=== PATIENT | female | born 1970 | race Caucasian/White ===

== ENCOUNTER 2022-02-20 22:05 | Emergency (ER) | payer SELFPAY ==
[2022-02-20 22:07] VITALS: BP 146/97; PULSE 108; RESP 20; TEMP 36.3; O2SAT 100
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
[2022-02-20] MEDS: KETOROLAC 30 MG/ML VIAL (*BKC) IV PUSH (22:27)
[2022-02-20] MEDS: diphenhydrAMINE HCl INJ 50 MG/ML VIAL 25 MG IV PUSH (22:30)
[2022-02-20] MEDS: SODIUM CHLORIDE 0.9% IV 1,000 ML 999 ML IV CONT (22:31)
[2022-02-20 22:48] VITALS: BP 171/95; PULSE 88; RESP 16; O2SAT 98
[2022-02-21 00:56] VITALS: BP 150/98; PULSE 91; RESP 16; O2SAT 100
== END 2022-02-21 00:35 | disposition home or self-care (01) ==
PROVIDERS: Emergency Provider Emergency Medicine
DX: G43.011 Migraine without aura, intractable, with status migrainosus (principal)
CPT/HCPCS: 96361; 96374; 96375; 99284; J1200; J1885; J7030

== ENCOUNTER 2023-05-16 12:33 | Emergency (ER) | payer BC, SELFPAY ==
--- NOTE | ~2023-05-16 | CT_ITS ---
EXAMINATION: CT brain wo con DATE: 05/16/2023 15:03 INDICATION: Head injury TECHNIQUE: Computed tomography (CT) of the head was performed without intravenous contrast. Sagittal and coronal reconstructions were performed. The mA was adjusted according to patient size. Iterative reconstruction technique was employed. The dose-length product was 681.00 mGy-cm. COMPARISON: None FINDINGS: No fracture. No acute intracranial hemorrhage, acute infarction or abnormal extra axial fluid collect ion. Ventricles are normal and symmetric. No mass/mass effect. The orbits, paranasal sinuses and mast oid air cells are normal. IMPRESSION: 1. Normal head CT. No fracture or acute intracranial process. Reviewed, dictated and finalized at location L.
[2023-05-16 12:35] VITALS: BP 152/96; PULSE 68; RESP 16; TEMP 36.9; O2SAT 100
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
[2023-05-16] MEDS: SODIUM CHLORIDE 0.9% IV 1,000 ML 999 ML IV CONT (13:58)
[2023-05-16] MEDS: diphenhydrAMINE HCl INJ 50 MG/ML VIAL 25 MG IV PUSH (13:59)
[2023-05-16] MEDS: PROCHLORPERAZINE EDISYLATE 10 MG/2 ML VIAL IV PUSH (13:59)
[2023-05-16] MEDS: ONDANSETRON INJ 4 MG/2 ML VIAL IV PUSH (13:59)
[2023-05-16 15:34] VITALS: BP 142/87; PULSE 66; RESP 18; O2SAT 99
== END 2023-05-16 15:30 | disposition home or self-care (01) ==
PROVIDERS: Emergency Provider Emergency Medicine
DX: S09.90XA Unspecified injury of head, initial encounter (principal); W18.30XA Fall on same level, unspecified, initial encounter
CPT/HCPCS: 70450; 96361; 96374; 96375; 99284; J0780; J1200; J2405; J7030

== ENCOUNTER 2023-08-01 15:37 | Outpatient (RCR) | payer BC, SELFPAY ==
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
== END 2023-09-05 13:02 | disposition home or self-care (01) ==
LOC: ANHST 15:37
DX: S82.871 Displaced pilon fracture of right tibia (principal); R25.2 Cramp and spasm; R26.81 Unsteadiness on feet; Z44.121 Encounter for fitting and adjustment of partial artificial right leg; Z89.511 Acquired absence of right leg below knee
CPT/HCPCS: 96125

== ENCOUNTER 2023-12-19 18:32 | Inpatient (IN) | payer BC, SELFPAY ==
--- NOTE | ~2023-12-19 | XR_ITS ---
EXAMINATION: XR abdomen obstructive series DATE: 12/22/2023 08:04 INDICATION: Distended sigmoid colon. TECHNIQUE: Upright and supine views of the abdomen on 3 radiographs were obtained. COMPARISON: Abdomen radiographs 12/20/2023 FINDINGS: There is gaseous distention of the sigmoid colon. There is a small volume of stool in the c olon. The small bowel is normal in caliber. No free intraperitoneal gas. There is mild atelectasis at the lung bases. IMPRESSION: 1. Gaseous distention of the sigmoid colon, likely adynamic ileus. Reviewed, dictated and finalized at location A. DULE CLERK
--- NOTE | ~2023-12-19 | XR_ITS ---
Supine and upright views of the abdomen Clinical history: NG tube placement Findings: NG tube in satisfactory position. Bowel gas pattern is nonspecific. No evidence for obstruc tion or free air. No abnormal mass lesion or calcification is seen. Osseous structures are intact. Impression: NG tube in satisfactory position. Reviewed, dictated and finalized at [facility]. ICAL MEDICAL ASSISTANT Impression: NG tube in satisfactory position.
--- NOTE | ~2023-12-19 | MR_ITS ---
EXAMINATION: MR thoracic spine wo/w con DATE: 12/20/2023 17:34 INDICATION: Paraspinal mass. Back pain. TECHNIQUE: Magnetic resonance imaging (MRI) of the thoracic spine was performed without and with 15 m L MultiHance intravenous contrast. COMPARISON: Chest CT 12/20/2023 FINDINGS: Bone alignment is normal. Vertebral body heights and intervertebral disc heights are normal . The discs do not extend beyond the endplate margins. There is multilevel facet joint osteoarthritis , severe in lower thoracic spine. There is multilevel mild neural foraminal stenosis. There is a 3.1 x 1.6 x 1.4 cm paraspinal cyst with fluid/fluid level on the left at T4-T5. IMPRESSION: 1. 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 2. Mild thoracic spondylosis. Reviewed, dictated and finalized at location E. ICAL SUPPLIES STERILIZER
--- NOTE | ~2023-12-19 | XR_ITS ---
EXAMINATION: XR abdomen/kub 1V DATE: 12/20/2023 17:50 INDICATION: Bowel resection. TECHNIQUE: A supine view of the abdomen on 2 radiographs was obtained. COMPARISON: CT abdomen and pelvis 12/20/2023 FINDINGS: There is gaseous distention of the sigmoid colon There is a moderate volume of stool in the colon. The small bowel is normal in caliber. The nasogastric tube tip is in the stomach. IMPRESSION: 1. Gaseous distention of the sigmoid colon, likely adynamic ileus. Reviewed, dictated and finalized at location E. LATE CHECKER
--- NOTE | ~2023-12-19 | CT_ITS ---
Clinical Indication: Chest pain, abdominal pain CT Scan of the Chest, Abdomen, and Pelvis with Contrast: Technique: Contiguous sections were acquired throughout the chest, abdomen, and pelvis after intraven ous administration of 100 cc of Omnipaque 350. Dose reduction technique was used on this scan by cade roberson automated exposure control and iterative reconstruction technique. The dose-length product (DL P) was 1460.76 mGy-cm. Findings: There is no evidence of any significant mediastinal, hilar or axillary lymphadenopathy. No aortic ane urysm or dissection. No pulmonary embolus. There is a 3.2 x 1.6 cm left paravertebral soft tissue mas s just posterior to the aortic arch (axial image 70).. There is no evidence of pleural or pericardial effusion. The lungs are clear. No pulmonary nodules or infiltrates are noted. The liver, spleen, pancreas, gallbladder, adrenals and kidneys are within normal limits. No evidence of aortic aneurysm. No lymphadenopathy. No bowel obstruction or bowel wall thickening. There is no evidence to suggest acute appendicitis. Urinary bladder is unremarkable. No pelvic mass seen. No ascites. Impression: 3.2 x 1.6 cm left paravertebral soft tissue mass at the T4 level, as detailed above. Diagnostic consi derations include neoplasm, especially neurogenic tumors, lymphadenopathy, or possibly extra medullar y hematopoiesis. Consider PET/CT and/or tissue sampling to establish a histologic diagnosis. Comparis on with any outside prior exams, if such are available, would be useful to assess for chronicity of t his lesion. No other significant findings. Reviewed, dictated and finalized at location . L DEFENSE DIRECTOR Impression: 3.2 x 1.6 cm left paravertebral soft tissue mass at the T4 level, as detailed palak perez. Diagnostic considerations include neoplasm, especially neurogenic tumors, lymphadenopathy, or possibly extra medullary hematopoiesis. Consider PET/CT an d/or tissue sampling to establish a histologic diagnosis. Comparison with any o dcside prior exams, if such are available, would be useful to assess for chroni city of this lesion. No other significant findings.
--- NOTE | ~2023-12-19 | XR_ITS ---
EXAMINATION: XR chest 2V DATE: 12/19/2023 20:41 INDICATION: Chest pain. Shortness of breath. TECHNIQUE: Frontal and lateral views of the chest were obtained. COMPARISON: None. FINDINGS: There is no pneumonia, pleural effusion, or pneumothorax. The heart size is normal. IMPRESSION: 1. No acute cardiopulmonary disease. Reviewed, dictated and finalized at location E. UE TESTER
--- NOTE | 2023-12-19 18:48 | ECG_ITS ---
Measurements Intervals [place] Rate: 103 P: 43 NC: 144 QRS: -14 QRSD: 79 T: 39 QT: 343 QTc: 449 Interpretive Statements SINUS TACHYCARDIA LOW-VOLTAGE QRS OTHERWISE WITHIN NORMAL LIMITS ABNORMAL RHYTHM ECG NO PREVIOUS ECG AVAILABLE FOR COMPARISON Electronically Signed On 12-20-2023 7:10:09 IRON SETTER by Fabio Nazario M.D.
[2023-12-19 18:50] VITALS: BP 140/88; PULSE 108; RESP 16; TEMP 36.6; O2SAT 100
[2023-12-19 19:17] LABS: Basophils Absolute Auto 0.1 K/mm3 (0.0-0.1); Basophils Percent Auto 0.6 % (0.2-1.2); Eosinophils Absolute Auto 0.2 K/mm3 (0-0.3); Eosinophils Percent Auto 2.1 % (0-4.4); Hematocrit 37.3 % (37.0-47.0); Hemoglobin 12.1 g/dL (12.0-15.0); Immature Granulocyte Absolute 0.04 K/mm3 (0.00-0.031); Immature Granulocyte Percent A 0.4 % (0-0.5); Lymphocytes Percent Auto 25.5 % (18.3-44.2); Mean Corpuscular HGB Conc 32.4 g/dl (32-36); Mean Corpuscular Hemoglobin 29.7 pg (26-34); Mean Corpuscular Volume 91.6 fl (80-100); Mean Platelet Volume 9.7 fl (7.4-10.4); Monocytes Absolute Auto 0.8 K/mm3 (0.1-0.6); Monocytes Percent Auto 7.5 % (2.6-8.5); Neutrophils Absolute Auto 6.5 K/mm3 (1.3-6.7); Neutrophils Percent Auto 63.9 % (45.5-73.1); Platelet Count Result 298 k/mm3 (150-375); Red Blood Count 4.07 M/mm3 (4.2-5.4); Red Cell Distribution Width 12.7 % (11.5-14.5); White Blood Count 10.2 K/mm3 (4.5-10.0)
[2023-12-19 19:29] LABS: Alanine Aminotransferase 20 U/L (6-35); Albumin Level 3.8 g/dL (3.5-5.1); Alkaline Phosphatase 105 U/L (38-126); Anion Gap 6 mmol/L (8-16); Aspartate Amino Transferase 26 U/L (14-36); Bilirubin,Total 0.4 mg/dL (0.2-1.3); Blood Urea Nitrogen 20 mg/dL (7-17); Carbon Dioxide 25 mmol/L (22-30); Chloride 106 mmol/L (98-107); Estimated CRCL calculation 62 ml/min; Estimated Glomerular Filt Rate 58; Glucose 100 mg/dL (65-110); INR 0.9; Lipase 125 U/L (23-300); Potassium 4.1 mmol/L (3.4-5.0); Sodium 137 mmol/L (137-145)
[2023-12-19 19:30] LABS: Partial Thromboplastin Time 28.2 SECONDS (22.3-36.8)
[2023-12-19 19:38] LABS: Troponin I < 0.012 ng/mL (0.000-0.034)
[2023-12-19 23:35] VITALS: BP 163/101; PULSE 96; RESP 18; O2SAT 100
--- NOTE | 2023-12-19 23:41 | ECG_ITS ---
Measurements Intervals [place] Rate: 93 P: 43 IN: 142 QRS: -17 QRSD: 82 T: 35 QT: 342 QTc: 426 Interpretive Statements SINUS RHYTHM BORDERLINE LEFTWARD AXIS OTHERWISE WITHIN NORMAL LIMITS COMPARED TO ECG 12/19/2023 18:43:44 NO SIGNIFICANT DIFFERENCE Electronically Signed On 12-20-2023 15:28:37 COMMUNICATION SPEC by Fabio Nazario M.D.
[2023-12-20] VITALS (13 sets, daily range): BP systolic 127–180; BP diastolic 73–109; PULSE 77–102; RESP 15–17; TEMP 36.3–36.4; O2SAT 97–100
[2023-12-20 00:13] LABS: D Dimer 0.31 ug/mL (<0.48)
[2023-12-20 00:16] LABS: Troponin I < 0.012 ng/mL (0.000-0.034)
[2023-12-20] MEDS: ONDANSETRON INJ 4 MG/2 ML VIAL IV PUSH ×2 (00:49→15:05)
[2023-12-20] MEDS: MORPHINE SULFATE (*CRX) 4 MG/ML INJ IV PUSH (00:49)
[2023-12-20] MEDS: HYDROmorphone HCL INJ (*CRX) 1 MG/ML SYR IV PUSH ×6 (02:02→19:05)
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
[2023-12-20] MEDS: hydrALAZINE HCL 20 MG/ML VIAL 10 MG IV PUSH (04:37)
--- NOTE | 2023-12-20 05:35 | ADMGEN ---
This patient, Arvind Das, was admitted to Medical Room 250-01. Patient/family oriented to hospital policies and general routines including ID bracelet, bed and alarms, visiting hours, pain management, procedures, bathroom and other care routines, personal items, smoking policy, room service/diet, and visiting hours. Information on how to activate the Rapid Response Team has been discussed. Patient/Family are encouraged to report perceived risks to care and to ask questions if they do not understand what they are told or what they should do.
[2023-12-20] MEDS: SODIUM CHLORIDE 0.9% IV 1,000 ML 125 ML IV CONT ×2 (05:50→18:47)
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
[2023-12-20 09:19] LABS: Basophils Absolute Auto 0.1 K/mm3 (0.0-0.1); Basophils Percent Auto 0.4 % (0.2-1.2); Eosinophils Percent Auto 0.3 % (0-4.4); Hematocrit 37.9 % (37.0-47.0); Hemoglobin 12.1 g/dL (12.0-15.0); Immature Granulocyte Absolute 0.04 K/mm3 (0.00-0.031); Immature Granulocyte Percent A 0.3 % (0-0.5); Lymphocytes Absolute Auto 1.69 K/mm3 (0.9-3.2); Lymphocytes Percent Auto 13.9 % (18.3-44.2); Mean Corpuscular HGB Conc 31.9 g/dl (32-36); Mean Corpuscular Hemoglobin 29.6 pg (26-34); Mean Corpuscular Volume 92.7 fl (80-100); Mean Platelet Volume 9.6 fl (7.4-10.4); Monocytes Absolute Auto 0.9 K/mm3 (0.1-0.6); Monocytes Percent Auto 7.5 % (2.6-8.5); Neutrophils Absolute Auto 9.4 K/mm3 (1.3-6.7); Neutrophils Percent Auto 77.6 % (45.5-73.1); Platelet Count Result 259 k/mm3 (150-375); Red Blood Count 4.09 M/mm3 (4.2-5.4); White Blood Count 12.1 K/mm3 (4.5-10.0)
[2023-12-20 09:28] LABS: Alanine Aminotransferase 21 U/L (6-35); Albumin Level 3.9 g/dL (3.5-5.1); Alkaline Phosphatase 117 U/L (38-126); Anion Gap 6 mmol/L (8-16); Aspartate Amino Transferase 26 U/L (14-36); Bilirubin,Total 0.6 mg/dL (0.2-1.3); Blood Urea Nitrogen 16 mg/dL (7-17); Carbon Dioxide 25 mmol/L (22-30); Chloride 106 mmol/L (98-107); Estimated CRCL calculation 77 ml/min; Estimated Glomerular Filt Rate > 60; Glucose 111 mg/dL (65-110); Magnesium 2.1 mg/dL (1.6-2.3); Potassium 3.8 mmol/L (3.4-5.0); Sodium 137 mmol/L (137-145)
[2023-12-20] MEDS: ACETAMINOPHEN 325 MG TABLET 650 MG PO ×2 (13:00→20:22)
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
--- NOTE | 2023-12-20 19:54 | PC.NURSE ---
Dr. Shah returned call r/t consult. She will look at patient's films this evening or tomorrow and evaluate if patient needs to be seen at this time. Patient may need to follow up outpatient r/t MRI finding. She will either call the hospitalist or the nurse tomorrow to communicate for further instructions. States she may not be rounding on Saturday12/21/23 but may be here saturday and see patient if she is still here.
--- NOTE | 2023-12-20 20:19 | WPDNEUROSGPN ---
Subjective Date/time seen: 12/20/23 20:19 Interval history: I was asked to review patient's MRI of the thoracic spine, which shows a left paraspinal cystic lesion adjacent to the T5 vebral body in the extraspinal space between the thoracic vertebral column and the aortic arch. This lesion was identified on Chest Abdomen Pelvis CT perofrmed for other reasons and that study was suggestive of a soft tissue lesion. On the MRI there appears to be a fluid level within the lesion. There is no suggestion of metastatic disease on the CAP CT and no history of maligancy per the records. 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 Particularly given that this is an incidental finding and given the location, I would favor a plan for observing this with serial clinical and radiographic assessment. There are no clinical or radiographic characteristics that would suggest a need for further intervention during this hospitalization. Patient could and should follow up in the neurosurgical clinic to discuss further and to establish care for serial clinical and radiographic assessment. Objective Data Vital Signs Vital Signs: Vital Signs - 24 hr 12/19/23 23:35 12/20/23 03:20 12/20/23 03:48 Temperature Pulse Rate 96 93 Respiratory Rate 18 15 Blood Pressure 163/101 H 176/109 H Pulse Oximetry 100 100 97 Oxygen Delivery Nasal Cannula Oxygen Flow Rate 2 12/20/23 04:43 12/20/23 05:07 12/20/23 05:35 Temperature 36.4 C L Pulse Rate 93 98 94 Respiratory Rate 15 15 Blood Pressure 158/74 H 127/73 Pulse Oximetry 100 100 Oxygen Delivery Oxygen Flow Rate 12/20/23 05:43 12/20/23 15:13 12/20/23 08:00 Temperature 36.4 C 36.3 C L Pulse Rate 94 91 102 H Respiratory Rate 16 17 Blood Pressure 148/93 H 150/87 H Pulse Oximetry 99 100 Oxygen Delivery Oxygen Flow Rate 12/20/23 12:04 12/20/23 17:54 Temperature Pulse Rate 91 77 Respiratory Rate Blood Pressure Pulse Oximetry Oxygen Delivery Oxygen Flow Rate Intake/Output Intake/Output: Intake & Output 12/17/23 12/18/23 12/19/23 12/20/23 23:59 23:59 23:59 23:59 Intake Total 1000 Balance 1000 Meds/Results Medications: Active Medications Generic Name Dose Route Start Last Admin Trade Name Freq PRN Reason Stop Dose Admin Acetaminophen 650 mg 12/20/23 12:35 12/20/23 13:00 Acetaminophen 325 Mg Tablet PO 650 mg Q6H PRN Administration Headache Fluoxetine HCl 60 mg 12/20/23 09:00 12/20/23 09:12 Fluoxetine Hcl 20 Mg Capsule PO Not Given DAILY ABE Hydromorphone HCl 1 mg 12/20/23 03:46 12/20/23 19:05 Hydromorphone Hcl Inj (*Crx) 1 Mg/Ml Syr IV PUSH 1 mg Q4H PRN Administration Pain Rated 7-10 Sodium Chloride 1,000 mls @ 125 mls/hr 12/20/23 03:50 12/20/23 18:47 Normal Saline Iv IV CONT 125 mls/hr .Q8H ABE Administration Ondansetron HCl 4 mg 12/20/23 03:46 12/20/23 15:05 Ondansetron Inj 4 Mg/2 Ml Vial IV PUSH 4 mg Q4H PRN Administration Nausea Radiology Results: ITS Impressions Chest X-Ray 12/19/23 20:44 IMPRESSION: 1. No acute cardiopulmonary disease. Chest/Abdomen/Pelvis CTA 12/20/23 05:47 Impression: 3.2 x 1.6 cm left paravertebral soft tissue mass at the T4 level, as detailed above. Diagnostic considerations include neoplasm, especially neurogenic tumors, lymphadenopathy, or possibly extra medullary hematopoiesis. Consider PET/CT and/or tissue sampling to establish a histologic diagnosis. Comparison with any outside prior exams, if such are available, would be useful to assess for chronicity of this lesion. No other significant findings. Thoracic Spine MRI 12/20/23 17:37 IMPRESSION: 1. 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 2. Mild thoracic spondylosis. Abdomen X-Ray 12/20/23 17:55 IMPRESSION: 1. Gaseous distention of the sigmoid colon, likely
[2023-12-21] VITALS (9 sets, daily range): BP systolic 167–169; BP diastolic 92–95; PULSE 79–104; RESP 14–20; TEMP 36.4–36.8; O2SAT 95–100
--- NOTE | 2023-12-21 | ECHO_ITS ---
Patient Info Name: Arvind Das Age: 53 years : 1970 Gender: Female Ht: 66 in Wt: 178 lbs BSA: 1.96 m2 HR: 71 bpm BP: 167 / 92 mmHg Heart Rhythm: Sinus Rhythm Technical Quality: Fair Exam Date: 12/21/2023 1:31 PM Exam Location: Echo Lab Exam Room: 250 Patient Status: Inpatient Admit Date: 12/20/2023 Staff Ordering Physician: Lucien Ayoub MD [employer] Excavation Operator: Danita Rahman RDCS Attending Provider: Rey Enriquez MD Exam Type: CA echo doppler color flow Study Info Indications - chest pain Complete two-dimensional, color flow and Doppler transthoracic echocardiogram is performed. Summary 1. Complete two-dimensional, color flow and Doppler transthoracic echocardiogram is performed. 2. Left ventricular chamber dimension is normal. 3. Left ventricular systolic function is normal, estimated at 65-70%. 4. There is mildly increased left ventricular wall thickness. 5. The left ventricular diastolic function is grade I diastolic dysfunction. 6. There is mild mitral valve regurgitation. 7. There is mild tricuspid valve regurgitation. 8. There is mild pulmonic regurgitation. Left Ventricle Left ventricular chamber dimension is normal. Left ventricular systolic function is normal, estimated at 65-70%. There is mildly increased left ventricular wall thickness. The left ventricular diastolic function is grade I diastolic dysfunction. Right Ventricle Right ventricular chamber dimension is normal. Right ventricular systolic function is normal. Left Atria Left atrial chamber dimension is normal. Right Atria Right atrial chamber dimension is normal. Atrial Septum Intact interatrial septum visualized by color flow imaging. Aortic Valve The aortic valve is probable trileaflet. There is mild aortic valve sclerosis. There is no aortic valve stenosis. There is trace aortic valve regurgitation. Pulmonic Valve The pulmonic valve is normal. There is no pulmonic valve stenosis. There is mild pulmonic regurgitation. Mitral Valve The mitral valve has normal leaflets. There is no mitral valve stenosis. There is mild mitral valve regurgitation. Tricuspid Valve The tricuspid valve leaflets are normal. There is no significant tricuspid valve stenosis. There is mild tricuspid valve regurgitation. No pulmonary hypertension, estimated pulmonary arterial systolic pressure is 30 mmHg. Pericardium/Pleural The pericardium appears normal. There is no pericardial effusion. Inferior Vena Cava Normal inferior vena cava with >50% collapse upon inspiration consistent with normal right atrial pressure, 10 mmHg. Aorta The aortic root size at the sinus of Valsalva is normal. Left Ventricular Outflow Tract Name Value Normal LVOT 2D LVOT Diameter 2.0 cm LVOT Doppler LVOT Peak Gradient 5 mmHg LVOT Mean Gradient 3 mmHg LVOT VTI 25 cm LVOT VTI/AV VTI Ratio 0.9 LVOT Stroke Volume 81 ml LVOT CO 14.4 l/min LVOT CI 7.3 l/min/m2 Pulmonic Valve
[2023-12-21] MEDS: HYDROmorphone HCL INJ (*CRX) 1 MG/ML SYR IV PUSH ×2 (02:17→05:52)
[2023-12-21] MEDS: SODIUM CHLORIDE 0.9% IV 1,000 ML 125 ML IV CONT (02:48)
[2023-12-21] MEDS: FLUoxetine HCL 20 MG CAPSULE 60 MG PO (09:26)
[2023-12-21] MEDS: ACETAMINOPHEN 325 MG TABLET 650 MG PO (09:50)
[2023-12-21] MEDS: HYDROcodone/acetaminophen (*CRX) 10-325 MG TABLET 1 TAB PO ×3 (11:20→20:46)
--- NOTE | 2023-12-21 11:22 | PM.PNGS ---
Progress Note: A&P Assessment and Plan (1) Abnormal CT of the abdomen: Code(s): R93.5 - Abnormal findings on diagnostic imaging of other abdominal regions, including retroperitoneum Status: Acute Assessment and Plan: Advance diet as tolerated. I do not see any abdominal pathology that would be causing the thoracic and chest pain. Continue any further workup per hospitalist. Will get 1 more abdominal x-ray tomorrow to ensure that she is advancing her diet without any signs of obstruction. No further surgical recommendations at this time. (2) Paravertebral mass: Code(s): R22.2 - Localized swelling, mass and lump, trunk Status: Acute (3) Chest pain: Code(s): R07.9 - Chest pain, unspecified Status: Acute Subjective Subjective Date/Time Seen: 12/21/23 11:23 Interval history: Patient tolerated clear liquids. Bowels moving and passing flatus. Complaining of severe left thoracic and left chest pain. Exam GI: Inspection: non-distended GI Palp: Yes Soft to palpation, No Tenderness to palpation present (GI) and No Guarding due to palpation present (GI) Auscultation: normal bowel sounds Objective Data Vital Signs Vital Signs: Vital Signs - 24 hr 12/20/23 15:13 12/20/23 12:04 12/20/23 17:54 Temperature 36.3 C L Pulse Rate 91 91 77 Respiratory Rate 17 Blood Pressure 150/87 H Pulse Oximetry 100 Oxygen Delivery 12/20/23 20:35 12/20/23 21:15 12/20/23 20:03 Temperature 36.4 C Pulse Rate 78 94 Respiratory Rate 16 Blood Pressure 180/94 H Pulse Oximetry 97 Oxygen Delivery Room Air 12/21/23 00:01 12/21/23 04:00 12/21/23 05:38 Temperature 36.4 C Pulse Rate 87 104 H 94 Respiratory Rate 20 Blood Pressure 167/92 H Pulse Oximetry 95 Oxygen Delivery 12/20/23 21:42 Temperature Pulse Rate Respiratory Rate Blood Pressure Pulse Oximetry 97 Oxygen Delivery Room Air Intake/Output Intake/Output: Intake & Output 12/18/23 12/19/23 12/20/23 12/21/23 23:59 23:59 23:59 23:59 Intake Total 1000 1250 Balance 1000 1250 Meds/Results Medications: Active Medications Generic Name Dose Route Start Last Admin Trade Name Freq PRN Reason Stop Dose Admin Acetaminophen 650 mg 12/20/23 12:35 12/21/23 09:50 Acetaminophen 325 Mg Tablet PO 650 mg Q6H PRN Administration Headache Hydrocodone Bitart/Acetaminophen 1 tab 12/21/23 09:35 12/21/23 11:20 Hydrocodone/Acetaminophen (*Crx) 10-325 Mg Tablet PO 1 tab Q4H PRN Administration Pain Rated 6 or Greater Cyclobenzaprine HCl 5 mg 12/21/23 11:07 Cyclobenzaprine Hcl 5 Mg Tablet PO Q8H PRN Muscle Spasm Fluoxetine HCl 60 mg 12/20/23 09:00 12/21/23 09:26 Fluoxetine Hcl 20 Mg Capsule PO 60 mg DAILY ABE Administration Gabapentin 100 mg 12/21/23 13:00 Gabapentin 100 Mg Capsule PO TID ABE Hydromorphone HCl 1 mg 12/20/23 03:46 12/21/23 05:52 Hydromorphone Hcl Inj (*Crx) 1 Mg/Ml Syr IV PUSH 1 mg Q4H PRN Administration Moderate Pain (4-6) Sodium Chloride 1,000 mls @ 125 mls/hr 12/20/23 03:50 12/21/23 02:48 Normal Saline Iv IV CONT 125 mls/hr .Q8H ABE Administration Lidocaine 1 patch 12/22/23 09:00 Lidocaine 5% Patch TRANSDERM DAILY ABE Ondansetron HCl 4 mg 12/20/23 03:46 12/20/23 15:05 Ondansetron Inj 4 Mg/2 Ml Vial IV PUSH 4 mg Q4H PRN Administration Nausea Radiology Results: ITS Impressions Chest X-Ray 12/19/23 20:44 IMPRESSION: 1. No acute cardiopulmonary disease. Chest/Abdomen/Pelvis CTA 12/20/23 05:47 Impression: 3.2 x 1.6 cm left paravertebral soft tissue mass at the T4 level, as detailed above. Diagnostic considerations include neoplasm, especially neurogenic tumors, lymphadenopathy, or possibly extra medullary hematopoiesis. Consider PET/CT and/or tissue sampling to establish a histologic diagnosis. Comparison with any outside prior exams,
--- NOTE | 2023-12-21 12:59 | PM.IMPN ---
Progress Note: A&P Assessment and Plan (1) Chest pain: Code(s): R07.9 - Chest pain, unspecified Status: Acute (2) Paravertebral mass: Code(s): R22.2 - Localized swelling, mass and lump, trunk Status: Acute Plan This is a 53-year-old female presented with chief complaint of left posterior scapular pain radiating around the left breast and epigastric area for 4 hours. Worse with movement and deep inspiration P no prior history of cardiac disease. However evaluation in the ED showed EKG with sinus tachycardia mild no acute ST-T changes. Mild leukocytosis at 10.2 CMP within normal limits lipase is 125 which is normal, serial troponin normal, D-dimer was negative chest x-ray was negative. CTA chest was done which showed no evidence of PE. Noted 3.2 x 1.6 cm left paravertebral soft tissue mass just posterior to the aortic arch diagnostic considerations include neoplasm especially neurogenic tumor lymphadenopathy or possibly extramedullary hematopoiesis. Consider PET-CT and/or tissue sampling to status histologic diagnosis. No prior studies were found for comparison. Nighttime radiologist reported dilated loops of jejunum measuring up to 3 point cm with gradual transition to normal caliber bowel in the proximal jejunum. While findings may relate to peristalsis developing bowel obstruction is not excluded. Mild bladder wall thickening findings can be related to underdistention. Cystitis is less likely. No other acute findings reported. NG tube was placed in the ED. general surgery has been consulted. NG tube has been removed. Diet has been advanced Newly detected 3.2 x 1.6 cm left paravertebral soft tissue mass just posterior to the aortic arch likely etiology for possibly a neuropathic pain stemming from this mass. Discussed with radiologist and neurosurgery MRI thoracic spine suggestive of possible lymphangioma 3.1 cm left paraspinal cyst DVT prophylaxis SCDs Mild leukocytosis present will panculture add gabapentin for neuropathic pain. Oral pain medication lidocaine patch to the back for possible musculoskeletal Subjective Date/time seen: 12/21/23 12:59 Interval history: Patient continues to have this severe pain that comes on the back and radiates forward. Discussed with radiologist with regard to the MRI findings. Discussed with neurosurgery as well. There is mild neuroforaminal stenosis however this cyst is not patching or compressing any nerve roots Review of Systems Review of Systems: All systems reviewed & are unremarkable except as noted in HPI and below Exam Narrative: GENERAL: Well-appearing, well-nourished, and in mild acute pain distress. HEAD: Normocephalic, atraumatic. EYES: PERRLA and EOMI. ENT: Nares clear, no rhinorrhea or epistaxis.? Mucous membranes moist. NECK: Supple. CHEST: Clear to auscultation.? No respiratory distress. HEART: Regular rate and rhythm.? No murmur heard.? Normal peripheral pulses. ABDOMEN: Soft, mild tenderness in the epigastric region, nondistended, normal active bowel sounds. EXTREMITIES: Normal range of motion.? No edema. Mildly tender left paraspinal area at thoracic level SKIN: Warm, dry, no rash. NEURO: No focal deficits.? Alert and oriented x3. PSYCH: Normal mood and affect. Objective Data Vital Signs Vital Signs: Vital Signs - 24 hr 12/20/23 15:13 12/20/23 17:54 12/20/23 20:35 Temperature 97.4 F L Pulse Rate 91 77 Respiratory Rate 17 Blood Pressure 150/87 H Pulse Oximetry 100 Oxygen Delivery Room Air 12/20/23 21:15 12/20/23 20:03 12/21/23 00:01 Temperature 97.6 F Pulse Rate 78 94 87 Respiratory Rate 16 Blood Pressure 180/94 H Pulse Oximetry 97 Oxygen Delivery 12/21/23 04:00 12/21/23 05:38 12/20/23 21:42 Temperature 97.6 F Pulse Rate 104 H 94 Respiratory Rate 20 Blood Pressure 167/92 H Pulse Oximetry 95 97 Oxygen Delivery Room Air Intake/Output Intake/Output: Intake & Output 12/18/23
[2023-12-21 13:45] LABS: Erythrocyte Sedimentation Rate 84 mm/hr (0-20)
[2023-12-21 14:03] LABS: CRP 14.9 mg/dL (<1.0)
[2023-12-21] MEDS: GABAPENTIN 100 MG CAPSULE PO ×2 (14:47→18:32)
[2023-12-21] MEDS: SODIUM CHLORIDE 0.9% IV 1,000 ML 75 ML IV CONT (14:47)
[2023-12-21] MEDS: CYCLOBENZAPRINE HCL 5 MG TABLET PO ×2 (14:56→23:00)
[2023-12-22] VITALS (11 sets, daily range): BP systolic 139–172; BP diastolic 84–93; PULSE 73–103; RESP 16–18; TEMP 36.4–36.6; O2SAT 96–98
[2023-12-22] MEDS: HYDROcodone/acetaminophen (*CRX) 10-325 MG TABLET 1 TAB PO ×3 (00:50→09:28)
[2023-12-22 05:52] LABS: Basophils Absolute Auto 0.1 K/mm3 (0.0-0.1); Basophils Percent Auto 0.6 % (0.2-1.2); Eosinophils Absolute Auto 0.2 K/mm3 (0-0.3); Eosinophils Percent Auto 1.9 % (0-4.4); Hematocrit 36.3 % (37.0-47.0); Hemoglobin 11.6 g/dL (12.0-15.0); Immature Granulocyte Absolute 0.03 K/mm3 (0.00-0.031); Immature Granulocyte Percent A 0.4 % (0-0.5); Lymphocytes Absolute Auto 1.75 K/mm3 (0.9-3.2); Mean Corpuscular Volume 90.8 fl (80-100); Mean Platelet Volume 9.6 fl (7.4-10.4); Monocytes Absolute Auto 0.7 K/mm3 (0.1-0.6); Monocytes Percent Auto 8.9 % (2.6-8.5); Neutrophils Absolute Auto 5.6 K/mm3 (1.3-6.7); Neutrophils Percent Auto 67.2 % (45.5-73.1); Platelet Count Result 280 k/mm3 (150-375); Red Cell Distribution Width 12.5 % (11.5-14.5); White Blood Count 8.3 K/mm3 (4.5-10.0)
[2023-12-22 06:33] LABS: Alanine Aminotransferase 19 U/L (6-35); Albumin Level 3.7 g/dL (3.5-5.1); Alkaline Phosphatase 108 U/L (38-126); Anion Gap 4 mmol/L (8-16); Aspartate Amino Transferase 30 U/L (14-36); Bilirubin,Total 0.6 mg/dL (0.2-1.3); Blood Urea Nitrogen 10 mg/dL (7-17); Carbon Dioxide 29 mmol/L (22-30); Chloride 104 mmol/L (98-107); Estimated CRCL calculation 77 ml/min; Estimated Glomerular Filt Rate > 60; Glucose 102 mg/dL (65-110); Magnesium 2.1 mg/dL (1.6-2.3); Potassium 3.4 mmol/L (3.4-5.0); Sodium 137 mmol/L (137-145)
[2023-12-22] MEDS: CYCLOBENZAPRINE HCL 5 MG TABLET PO (06:48)
[2023-12-22] MEDS: FLUoxetine HCL 20 MG CAPSULE 60 MG PO (09:25)
[2023-12-22] MEDS: LIDOCAINE 5% PATCH 1 PATCH TRANSDERM (09:25)
[2023-12-22] MEDS: GABAPENTIN 100 MG CAPSULE PO ×3 (09:25→18:39)
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
[2023-12-22] MEDS: ONDANSETRON INJ 4 MG/2 ML VIAL IV PUSH (11:51)
[2023-12-22] MEDS: diazePAM INJ (*CRX) 10 MG/2 ML SYRINGE 5 MG IV PUSH (12:04)
--- NOTE | 2023-12-22 12:27 | PM.IMPN ---
Progress Note: A&P Assessment and Plan (1) Chest pain: Code(s): R07.9 - Chest pain, unspecified Status: Acute (2) Paravertebral mass: Code(s): R22.2 - Localized swelling, mass and lump, trunk Status: Acute Plan This is a 53-year-old female presented with chief complaint of left posterior scapular pain radiating around the left breast and epigastric area for 4 hours. Worse with movement and deep inspiration P no prior history of cardiac disease. However evaluation in the ED showed EKG with sinus tachycardia mild no acute ST-T changes. Mild leukocytosis at 10.2 CMP within normal limits lipase is 125 which is normal, serial troponin normal, D-dimer was negative chest x-ray was negative. CTA chest was done which showed no evidence of PE. Noted 3.2 x 1.6 cm left paravertebral soft tissue mass just posterior to the aortic arch diagnostic considerations include neoplasm especially neurogenic tumor lymphadenopathy or possibly extramedullary hematopoiesis. Consider PET-CT and/or tissue sampling to status histologic diagnosis. No prior studies were found for comparison. Nighttime radiologist reported dilated loops of jejunum measuring up to 3 point cm with gradual transition to normal caliber bowel in the proximal jejunum. While findings may relate to peristalsis developing bowel obstruction is not excluded. Mild bladder wall thickening findings can be related to underdistention. Cystitis is less likely. No other acute findings reported. NG tube was placed in the ED. general surgery has been consulted. NG tube has been removed. Diet has been advanced Newly detected 3.2 x 1.6 cm left paravertebral soft tissue mass just posterior to the aortic arch likely etiology for possibly a neuropathic pain stemming from this mass. Discussed with radiologist and neurosurgery. This will be followed up as an outpatient basis and will need thoracic surgery involvement down the line if this is thought to be a etiology of her pain. However given the improvement of the pain with current regimen for musculoskeletal origin this seems less likely MRI thoracic spine suggestive of possible lymphangioma 3.1 cm left paraspinal cyst DVT prophylaxis SCDs Mild leukocytosis present will panculture add gabapentin for neuropathic pain. Oral pain medication lidocaine patch to the back for possible musculoskeletal much improved Subjective Date/time seen: 12/22/23 12:27 Interval history: Feels better. On lidocaine patch discussed with Neurosurgery again today. Review of Systems Review of Systems: All systems reviewed & are unremarkable except as noted in HPI and below Exam Narrative: GENERAL: Well-appearing, well-nourished, and in mild acute pain distress. HEAD: Normocephalic, atraumatic. EYES: PERRLA and EOMI. ENT: Nares clear, no rhinorrhea or epistaxis.? Mucous membranes moist. NECK: Supple. CHEST: Clear to auscultation.? No respiratory distress. HEART: Regular rate and rhythm.? No murmur heard.? Normal peripheral pulses. ABDOMEN: Soft, mild tenderness in the epigastric region, nondistended, normal active bowel sounds. EXTREMITIES: Normal range of motion.? No edema. Mildly tender left paraspinal area at thoracic level SKIN: Warm, dry, no rash. NEURO: No focal deficits.? Alert and oriented x3. PSYCH: Normal mood and affect. Objective Data Vital Signs Vital Signs: Vital Signs - 24 hr 12/21/23 14:29 12/21/23 16:00 12/21/23 20:41 Temperature 98.2 F 97.6 F Pulse Rate 84 93 83 Respiratory Rate 14 16 Blood Pressure 169/93 H 169/95 H Pulse Oximetry 100 99 Oxygen Delivery 12/21/23 20:00 12/22/23 00:00 12/22/23 04:00 Temperature Pulse Rate 79 101 H 88 Respiratory Rate Blood Pressure Pulse Oximetry Oxygen Delivery 12/22/23 05:50 12/22/23 08:00 12/22/23 09:30 Temperature 97.7 F Pulse Rate 86 81 Respiratory Rate 16 Blood Pressure 172/93 H Pulse Oximetry 98 Oxygen Delivery Room Air
--- NOTE | 2023-12-22 13:26 | PM.PNGS ---
Progress Note: A&P Assessment and Plan (1) Abnormal CT of the abdomen: Code(s): R93.5 - Abnormal findings on diagnostic imaging of other abdominal regions, including retroperitoneum Status: Acute Assessment and Plan: Advance diet as tolerated. I reviewed CT and abdominal x-rays with radiologist. Sigmoid colon redundant and gas filled, but no definite signs of volvulus. Could consider contrast enema for further workup if experiencing abdominal pain or distention. Patient is tolerating diet and having bowel function so volvulus is less likely at this time. OK to discharge from surgical standpoint if tolerating regular diet. No surgical follow up necessary. (2) Paravertebral mass: Code(s): R22.2 - Localized swelling, mass and lump, trunk Status: Acute (3) Chest pain: Code(s): R07.9 - Chest pain, unspecified Status: Acute Subjective Subjective Date/Time Seen: 12/22/23 13:26 Interval history: Tolerating full liquids and passing flatus. Feeling slight bloating but no real abdominal pain. Chest pain improved after starting muscle relaxants. Exam GI: Inspection: non-distended GI Palp: Yes Soft to palpation, No Tenderness to palpation present (GI) and No Guarding due to palpation present (GI) Auscultation: normal bowel sounds Objective Data Vital Signs Vital Signs: Vital Signs - 24 hr 12/21/23 14:29 12/21/23 16:00 12/21/23 20:41 Temperature 36.8 C 36.4 C Pulse Rate 84 93 83 Respiratory Rate 14 16 Blood Pressure 169/93 H 169/95 H Pulse Oximetry 100 99 Oxygen Delivery 12/21/23 20:00 12/22/23 00:00 12/22/23 04:00 Temperature Pulse Rate 79 101 H 88 Respiratory Rate Blood Pressure Pulse Oximetry Oxygen Delivery 12/22/23 05:50 12/22/23 08:00 12/22/23 09:30 Temperature 36.5 C Pulse Rate 86 81 Respiratory Rate 16 Blood Pressure 172/93 H Pulse Oximetry 98 Oxygen Delivery Room Air 12/22/23 10:38 12/22/23 12:13 12/22/23 12:00 Temperature 36.4 C L Pulse Rate 89 73 Respiratory Rate 17 Blood Pressure 149/89 H 152/92 H Pulse Oximetry 97 Oxygen Delivery Intake/Output Intake/Output: Intake & Output 12/19/23 12/20/23 12/21/23 12/22/23 23:59 23:59 23:59 23:59 Intake Total 1000 2610 610 Balance 1000 2610 610 Meds/Results Medications: Active Medications Generic Name Dose Route Start Last Admin Trade Name Freq PRN Reason Stop Dose Admin Acetaminophen 650 mg 12/20/23 12:35 12/21/23 09:50 Acetaminophen 325 Mg Tablet PO 650 mg Q6H PRN Administration Headache Hydrocodone Bitart/Acetaminophen 1 tab 12/21/23 09:35 12/22/23 09:28 Hydrocodone/Acetaminophen (*Crx) 10-325 Mg Tablet PO 1 tab Q4H PRN Administration Pain Rated 6 or Greater Cyclobenzaprine HCl 5 mg 12/21/23 11:07 12/22/23 06:48 Cyclobenzaprine Hcl 5 Mg Tablet PO 5 mg Q8H PRN Administration Muscle Spasm Fluoxetine HCl 60 mg 12/20/23 09:00 12/22/23 09:25 Fluoxetine Hcl 20 Mg Capsule PO 60 mg DAILY ABE Administration Furosemide 20 mg 12/22/23 13:00 Furosemide 20 Mg Tablet PO DAILY ABE Gabapentin 100 mg 12/21/23 13:00 12/22/23 12:04 Gabapentin 100 Mg Capsule PO 100 mg TID ABE Administration Hydrochlorothiazide 12.5 mg 12/22/23 09:00 Hydrochlorothiazide 12.5 Mg Capsule PO DAILY ABE Hydromorphone HCl 0.5 mg 12/21/23 12:59 Hydromorphone Hcl Inj (*Crx) 1 Mg/Ml Syr IV PUSH Q4H PRN Moderate Pain (4-6) Lidocaine 1 patch 12/22/23 09:00 12/22/23 09:25 Lidocaine 5% Patch TRANSDERM 1 patch DAILY ABE Administration Linaclotide 145 mcg 12/23/23 09:00 Linaclotide 145 Mcg Capsule PO DAILY ABE Ondansetron HCl 4 mg 12/20/23 03:46 12/22/23 11:51 Ondansetron Inj 4 Mg/2 Ml Vial IV PUSH 4 mg Q4H PRN Administration Nausea Perflutren Lipid Microsphere 0 ml 12/21/23 12:58 Perflutren Lipid Microspheres 1.5 Ml Vial
[2023-12-22] MEDS: hydroCHLOROthiazide 12.5 MG CAPSULE PO (13:45)
[2023-12-22] MEDS: FUROSEMIDE 20 MG TABLET PO (13:45)
[2023-12-22] MEDS: TOLNAFTATE 1% POWDER 45 GM BTL 1 APPLIC TOPICAL ×2 (13:45→20:46)
[2023-12-23] VITALS (9 sets, daily range): BP systolic 96–155; BP diastolic 62–86; PULSE 75–98; RESP 16–18; TEMP 36.4–36.8; O2SAT 94–96
[2023-12-23] MEDS: CYCLOBENZAPRINE HCL 5 MG TABLET PO ×3 (01:54→23:07)
[2023-12-23] MEDS: HYDROcodone/acetaminophen (*CRX) 10-325 MG TABLET 1 TAB PO ×2 (01:54→08:52)
[2023-12-23] MEDS: hydroCHLOROthiazide 12.5 MG CAPSULE PO (08:51)
[2023-12-23] MEDS: FLUoxetine HCL 20 MG CAPSULE 60 MG PO (08:53)
[2023-12-23] MEDS: TOLNAFTATE 1% POWDER 45 GM BTL 1 APPLIC TOPICAL ×2 (08:54→21:23)
[2023-12-23] MEDS: LINACLOTIDE 145 MCG CAPSULE PO (08:54)
[2023-12-23] MEDS: GABAPENTIN 100 MG CAPSULE PO ×2 (08:54→12:31)
[2023-12-23] MEDS: FUROSEMIDE 20 MG TABLET PO (08:54)
[2023-12-23] MEDS: LIDOCAINE 5% PATCH 1 PATCH TRANSDERM (09:01)
--- NOTE | 2023-12-23 12:04 | PM.IMPN ---
Progress Note: A&P Assessment and Plan (1) Chest pain: Code(s): R07.9 - Chest pain, unspecified Status: Acute (2) Paravertebral mass: Code(s): R22.2 - Localized swelling, mass and lump, trunk Status: Acute Plan This is a 53-year-old female presented with chief complaint of left posterior scapular pain radiating around the left breast and epigastric area for 4 hours. Worse with movement and deep inspiration P no prior history of cardiac disease. However evaluation in the ED showed EKG with sinus tachycardia mild no acute ST-T changes. Mild leukocytosis at 10.2 CMP within normal limits lipase is 125 which is normal, serial troponin normal, D-dimer was negative chest x-ray was negative. CTA chest was done which showed no evidence of PE. Noted 3.2 x 1.6 cm left paravertebral soft tissue mass just posterior to the aortic arch diagnostic considerations include neoplasm especially neurogenic tumor lymphadenopathy or possibly extramedullary hematopoiesis. Consider PET-CT and/or tissue sampling to status histologic diagnosis. No prior studies were found for comparison. Nighttime radiologist reported dilated loops of jejunum measuring up to 3 point cm with gradual transition to normal caliber bowel in the proximal jejunum. While findings may relate to peristalsis developing bowel obstruction is not excluded. Mild bladder wall thickening findings can be related to underdistention. Cystitis is less likely. No other acute findings reported. NG tube was placed in the ED. general surgery has been consulted. NG tube has been removed. Diet has been advanced Newly detected 3.2 x 1.6 cm left paravertebral soft tissue mass just posterior to the aortic arch likely etiology for possibly a neuropathic pain stemming from this mass. Discussed with radiologist and neurosurgery. This will be followed up as an outpatient basis and will need thoracic surgery involvement down the line if this is thought to be a etiology of her pain. However given the improvement of the pain with current regimen for musculoskeletal origin this seems less likely MRI thoracic spine suggestive of possible lymphangioma 3.1 cm left paraspinal cyst DVT prophylaxis SCDs Mild leukocytosis present will panculture add gabapentin for neuropathic pain. Oral pain medication lidocaine patch to the back for possible musculoskeletal much improved. Not requiring IV pain medication now. Continue current regimen and taper pain medication as tolerated. Anticipate DC in a.m. if remains stable Subjective Date/time seen: 12/23/23 12:04 Interval history: After Valium felt much better. Currently on oral pain medication. Having some vivid dreams. Not requiring any IV pain medication anymore. Review of Systems Review of Systems: All systems reviewed & are unremarkable except as noted in HPI and below Exam Narrative: GENERAL: Well-appearing, well-nourished, and in no acute distress HEAD: Normocephalic, atraumatic. EYES: PERRLA and EOMI. ENT: Nares clear, no rhinorrhea or epistaxis.? Mucous membranes moist. NECK: Supple. CHEST: Clear to auscultation.? No respiratory distress. HEART: Regular rate and rhythm.? No murmur heard.? Normal peripheral pulses. ABDOMEN: Soft, mild tenderness in the epigastric region, nondistended, normal active bowel sounds. EXTREMITIES: Normal range of motion.? No edema. Mildly tender left paraspinal area at thoracic level SKIN: Warm, dry, no rash. NEURO: No focal deficits.? Alert and oriented x3. PSYCH: Normal mood and affect. Objective Data Vital Signs Vital Signs: Vital Signs - 24 hr 12/22/23 12:13 12/22/23 13:43 12/22/23 16:01 Temperature 97.5 F L 97.5 F L Pulse Rate 89 84 82 Respiratory Rate 17 16 Blood Pressure 152/92 H 160/88 H Pulse Oximetry 97 98 Oxygen Delivery 12/22/23 19:43 12/22/23 20:00 12/23/23 04:56 Temperature 97.9 F 97.6 F Pulse Rate 103 H 98 79 Respiratory Rate 18 18 16 Blood Pressure 139/84 155/86
--- NOTE | 2023-12-23 12:31 | PM.PNGS ---
Progress Note: A&P Assessment and Plan (1) Abnormal CT of the abdomen: Code(s): R93.5 - Abnormal findings on diagnostic imaging of other abdominal regions, including retroperitoneum Status: Acute Assessment and Plan: Tolerating regular diet. No surgical recommendations at this time. OK to discharge. Return to ED for recurrent symptoms. (2) Paravertebral mass: Code(s): R22.2 - Localized swelling, mass and lump, trunk Status: Acute (3) Chest pain: Code(s): R07.9 - Chest pain, unspecified Status: Acute Subjective Subjective Date/Time Seen: 12/23/23 12:31 Interval history: Tolerating regular diet. No bloating or nausea. Passing flatus. Exam GI: Inspection: non-distended GI Palp: Yes Soft to palpation, No Tenderness to palpation present (GI) and No Guarding due to palpation present (GI) Objective Data Vital Signs Vital Signs: Vital Signs - 24 hr 12/22/23 13:43 12/22/23 16:01 12/22/23 19:43 Temperature 36.4 C L 36.6 C Pulse Rate 84 82 103 H Respiratory Rate 16 18 Blood Pressure 160/88 H 139/84 Pulse Oximetry 98 97 Oxygen Delivery 12/22/23 20:00 12/23/23 04:56 12/22/23 20:00 Temperature 36.4 C Pulse Rate 98 79 94 Respiratory Rate 18 16 Blood Pressure 155/86 H Pulse Oximetry 96 94 Oxygen Delivery Room Air 12/23/23 00:00 12/23/23 04:00 12/23/23 08:55 Temperature Pulse Rate 88 85 76 Respiratory Rate Blood Pressure Pulse Oximetry Oxygen Delivery 12/23/23 08:55 12/23/23 12:00 Temperature Pulse Rate 82 Respiratory Rate Blood Pressure Pulse Oximetry Oxygen Delivery Room Air Intake/Output Intake/Output: Intake & Output 12/20/23 12/21/23 12/22/23 12/23/23 23:59 23:59 23:59 23:59 Intake Total 1000 2610 610 590 Balance 1000 2610 610 590 Meds/Results Medications: Active Medications Generic Name Dose Route Start Last Admin Trade Name Freq PRN Reason Stop Dose Admin Acetaminophen 650 mg 12/20/23 12:35 12/21/23 09:50 Acetaminophen 325 Mg Tablet PO 650 mg Q6H PRN Administration Headache Hydrocodone Bitart/Acetaminophen 1 tab 02/10/24 09:35 12/23/23 08:52 Hydrocodone/Acetaminophen (*Crx) 10-325 Mg Tablet PO 1 tab Q4H PRN Administration Pain Rated 6 or Greater Cyclobenzaprine HCl 5 mg 12/21/23 11:07 12/23/23 12:31 Cyclobenzaprine Hcl 5 Mg Tablet PO 5 mg Q8H PRN Administration Muscle Spasm Fluoxetine HCl 60 mg 12/20/23 09:00 12/23/23 08:53 Fluoxetine Hcl 20 Mg Capsule PO 60 mg DAILY ABE Administration Furosemide 20 mg 12/22/23 13:00 12/23/23 08:54 Furosemide 20 Mg Tablet PO 20 mg DAILY ABE Administration Gabapentin 100 mg 12/21/23 13:00 12/23/23 12:31 Gabapentin 100 Mg Capsule PO 100 mg TID ABE Administration Hydrochlorothiazide 12.5 mg 12/22/23 09:00 12/23/23 08:51 Hydrochlorothiazide 12.5 Mg Capsule PO 12.5 mg DAILY ABE Administration Hydromorphone HCl 0.5 mg 12/21/23 12:59 Hydromorphone Hcl Inj (*Crx) 1 Mg/Ml Syr IV PUSH Q4H PRN Moderate Pain (4-6) Lidocaine 1 patch 12/22/23 09:00 12/23/23 09:01 Lidocaine 5% Patch TRANSDERM 1 patch DAILY ABE Administration Linaclotide 145 mcg 12/23/23 09:00 12/23/23 08:54 Linaclotide 145 Mcg Capsule PO 145 mcg DAILY ABE Administration Ondansetron HCl 4 mg 12/20/23 03:46 12/22/23 11:51 Ondansetron Inj 4 Mg/2 Ml Vial IV PUSH 4 mg Q4H PRN Administration Nausea Perflutren Lipid Microsphere 0 ml 12/21/23 12:58 Perflutren Lipid Microspheres 1.5 Ml Vial Diluted To 10 Ml Total Volume IV PUSH 12/24/23 12:58 ONCE PRN adequate visualization Protocol Tolnaftate 1 applic 12/22/23 12:00 12/23/23 08:54 Tolnaftate 1% Powder 45 Gm Btl TOPICAL 1 applic Q12HR ABE Administration Radiology Results: ITS Impressions Chest X-Ray 12/19/23 20:44 IMPRESSION: 1. No acute cardiopulmonary disea
--- NOTE | 2023-12-23 18:21 | PC.NURSE ---
On 12/23/23, the graduate nurse Lazaro Farmer, provided care and completed [facility] documentation on this patient. I have reviewed the graduate nurse's documentation and agree with the findings.
[2023-12-23] MEDS: ACETAMINOPHEN 325 MG TABLET 650 MG PO (23:17)
[2023-12-24] VITALS: PULSE 87
[2023-12-24 04:00] VITALS: PULSE 83
[2023-12-24 05:47] VITALS: BP 130/84; PULSE 93; RESP 20; TEMP 36.5; O2SAT 97
[2023-12-24 08:00] VITALS: PULSE 76
[2023-12-24 09:50] VITALS: BP 123/81; PULSE 86; O2SAT 97
[2023-12-24] MEDS: GABAPENTIN 100 MG CAPSULE PO ×2 (09:52→12:29)
[2023-12-24] MEDS: CYCLOBENZAPRINE HCL 5 MG TABLET PO (09:52)
[2023-12-24] MEDS: LINACLOTIDE 145 MCG CAPSULE PO (09:52)
[2023-12-24] MEDS: hydroCHLOROthiazide 12.5 MG CAPSULE PO (09:52)
[2023-12-24] MEDS: FLUoxetine HCL 20 MG CAPSULE 60 MG PO (09:52)
[2023-12-24] MEDS: FUROSEMIDE 20 MG TABLET PO (09:52)
[2023-12-24] MEDS: polyethylene glycoL 3350 17 GM POWD.PACK PO (09:53)
[2023-12-24] MEDS: LIDOCAINE 5% PATCH 1 PATCH TRANSDERM (09:54)
[2023-12-24] MEDS: TOLNAFTATE 1% POWDER 45 GM BTL 1 APPLIC TOPICAL (09:56)
--- NOTE | 2023-12-24 10:21 | PM.DS ---
DS: Admitting Diagnosis Discharge Date 12/24/2023 Admitting Diagnosis Chest pain DS: Discharge Diagnosis Discharge Diagnosis (1) Chest pain: Code(s): R07.9 - Chest pain, unspecified Status: Acute (2) Paravertebral mass: Code(s): R22.2 - Localized swelling, mass and lump, trunk Status: Acute DS: Summary Hospital Course Hospital Course: This is a 53-year-old female presented with chief complaint of left posterior scapular pain radiating around the left breast and epigastric area for 4 hours.? Worse with movement and deep inspiration P no prior history of cardiac disease.? However evaluation in the ED showed EKG with sinus tachycardia mild no acute ST-T changes.? Mild leukocytosis at 10.2 CMP within normal limits lipase is 125 which is normal, serial troponin normal, D-dimer was negative chest x-ray was negative.? CTA chest was done which showed no evidence of PE.? There was noted 3.2 x 1.6 cm left paravertebral soft tissue mass just posterior to the aortic arch diagnostic considerations include neoplasm especially neurogenic tumor lymphadenopathy or possibly extramedullary hematopoiesis.? Consider PET-CT and/or tissue sampling to status histologic diagnosis.? No prior studies were found for comparison. Nighttime radiologist reported dilated loops of jejunum measuring up to 3 point cm with gradual transition to normal caliber bowel in the proximal jejunum.? While findings may relate to peristalsis developing bowel obstruction is not excluded.? Mild bladder wall thickening findings can be related to underdistention.? Cystitis is less likely.? No other acute findings reported. NG tube was placed in the ED. general surgery has been consulted.? Upon evaluation by General surgery subsequent nG tube has been removed and Diet has been advanced which she tolerated well. For this newly detected 3.2 x 1.6 cm left paravertebral soft tissue mass just posterior to the aortic arch likely etiology for possibly a neuropathic pain stemming from this mass.? Discussed with radiologist and neurosurgery.? This will be followed up as an outpatient basis and will need thoracic surgery involvement down the line if this is thought to be a etiology of her pain.? However given the improvement of the pain with current regimen for musculoskeletal origin this seems less likely. She will be continued on current pain regimen and held have follow-up with her primary care. MRI thoracic spine suggestive of possible lymphangioma 3.1 cm left paraspinal cyst and did not seem to encroach nerve roots at all upon review the radiologist as well as Neurosurgery. DVT prophylaxis SCDs Mild leukocytosis present on admission but subsequently normalized active process rather than underlying infectious process. Chronic constipation on Linzess at home Time Spent with Patient Time attestation: Total time spent providing and/or coordinating discharge services: 35 minutes Exam Narrative: GENERAL: Well-appearing, well-nourished, and in no acute distress HEAD: Normocephalic, atraumatic. EYES: PERRLA and EOMI. ENT: Nares clear, no rhinorrhea or epistaxis.? Mucous membranes moist. NECK: Supple. CHEST: Clear to auscultation.? No respiratory distress. HEART: Regular rate and rhythm.? No murmur heard.? Normal peripheral pulses. ABDOMEN: Soft, mild tenderness in the epigastric region, nondistended, normal active bowel sounds. EXTREMITIES: Normal range of motion.? No edema. Mildly tender left paraspinal area at thoracic level SKIN: Warm, dry, no rash. NEURO: No focal deficits.? Alert and oriented x3. PSYCH: Normal mood and affect. DS: Data Data Completed and Pending Labs on day of discharge: Preliminary micro results at discharge 12/21/23 13:10 Blood Culture - Preliminary Blood 12/21/23 13:21 Blood Culture - Preliminary Blood Imaging Radiologist's impression: ITS Impressions Chest X-Ray 12/19/23 20:44 IMPRESSION: 1. No acute cardiopulmonary disease.
[2023-12-24] MEDS: HYDROcodone/acetaminophen (*CRX) 10-325 MG TABLET 1 TAB PO (12:29)
[2023-12-24 14:00] VITALS: BP 129/79; PULSE 83; RESP 16; TEMP 36.4; O2SAT 96
== END 2023-12-24 14:40 | disposition home or self-care (01) | DRG 313 ==
LOC: ANHED 12-20 03:46 → ANH2MED 12-20 04:35
PROVIDERS: Student in an Organized Health Care Education/Training Program; Admitting Provider Internal Medicine; Emergency Provider Emergency Medicine; Visit Provider Internal Medicine
DX: R07.89 Other chest pain (principal); M79.89 Other specified soft tissue disorders; R93.5 Abnormal findings on diagnostic imaging of other abdominal regions, including retroperitoneum; Z89.511 Acquired absence of right leg below knee
CPT/HCPCS: 36415; 71046; 71275; 72157; 74018; 74019; 74177; 80053; 83690; 83735; 84484; 85025; 85380; 85610; 85652; 85730; 86140; 87040; 93005; 93306; 96361; 96374; 96375; 96376; 99285; A9270; A9577; G0378; J0360; J1170; J2270; J2405; J3360; J7030; Q9967